=== PATIENT | female | born 1955 | race Caucasian/White ===

== ENCOUNTER 2017-03-13 07:12 | Day surgery (SDC) | payer BC ==
[~2017-03-13] VITALS: Ht 172.7 cm; Wt 133.6 kg
[~2017-03-13 07:12] MED LIST: APRESOLINE-DPS25 MG PO; ASA CHILDREN'S81 MG PO; ASA325 MG PO; BENADRYL-DPS25 MG PO; BENADRYL-DPS50 MG PO; BETAPACE DPS80 MG PO; CORTISPORIN CR7.5 GM; COUMADIN DPS3 MG PO; COUMADIN5 MG PO; FLEXERIL-DPS10 MG PO; FLONASE 0.05% D16 GM NS; GLUCOPHAGE1000 MG PO; JANUVIA100 MG PO; KLOR-CON M2020 ME1 PO; LANOXIN250 MCG PO; LANTUS100 UNITS/ SQ; LASIX DPS40 MG PO; LEXAPRO DPS20 MG PO; LOVENOX DP120 MG/0.8 PO; LOVENOX DP30 MG/0.3; MIRALAX PACKET17 GM PO; NORVASC5 MG PO; NOVOLIN; OXYCODONE-ACET1 EACH PO; PERCOCET 10-321 EACH PO; PRILOSEC DPS20 MG PO; REQUIP1 MG PO; SENOKOT S1 TAB PO; SYNTHROID DPS0.2 MG PO; SYNTHROID200 MCG PO; SYNTHROID50 MCG PO; TEKTURNA300 MG PO; THERA1 EACH PO; THERAPEUTIC MUL1 TAB PO; ULTRAM DPS50 MG PO; VISTARIL-DPS50 MG PO; ZYLOPRIM-DPS300 MG PO; ZYRTEC DPS10 MG PO
--- NOTE | 2017-03-13 14:37 | CVR ---
ADMIT: 03/13/2017 RM/LOC: [facility] MR#: [id number] [address] [id number] SOLEDAD ZAMORANO [address] [place] [address] Cardioversion Report SEX: F AGE: 61 : 1955 DATE: 03/13/2017 PROCEDURE: Cardioversion. INDICATION: Atrial fibrillation. DESCRIPTION OF PROCEDURE: Following informed consent in the Short Stay Surgery Unit, with the assistance of anesthesia following adequate sedation, and anesthesia per Anesthesia, a single shock of biphasic energy was delivered with the pads in the anterior-posterior position using a synced fashion. No complications were noted. The patient appeared to be in sinus rhythm. EKG and device check were done for confirmation. We will follow up with her on Thursday with an EKG to monitor her QTc and follow up with her in 2-3 weeks. Joann Hope MD/ jenna JOB #: [id number] CC: Mann Hope, Attending Physician Evelia Jon, Family Physician
== END 2017-03-13 09:55 | disposition home or self-care (01) ==
LOC: SSS 07:12
DX: I48.91 Unspecified atrial fibrillation (principal); I44.2 Atrioventricular block, complete; Z95.0 Presence of cardiac pacemaker; I35.0 Nonrheumatic aortic (valve) stenosis; Z95.2 Presence of prosthetic heart valve; Z79.82 Long term (current) use of aspirin; Z79.899 Other long term (current) drug therapy; Z79.01 Long term (current) use of anticoagulants; Z79.891 Long term (current) use of opiate analgesic; Z98.890 Other specified postprocedural states; Z88.1 Allergy status to other antibiotic agents; Z88.8 Allergy status to other drugs, medicaments and biological substances; Z88.2 Allergy status to sulfonamides